=== PATIENT | female | born 1985 | race Caucasian/White ===

== ENCOUNTER 2025-08-03 15:00 | Emergency (ER) | payer SELFPAY ==
[~2025-08-03] VITALS: Ht 165.1 cm; Wt 80.0 kg
[2025-08-03 15:08] VITALS: TEMP 98; O2SAT 100
[2025-08-03 15:38] VITALS: BP 146/71; PULSE 88; RESP 14; O2SAT 98
[2025-08-03 16:07] LABS: BASOPHILS % 0.7 % (0.0-2.0); EOSINOPHILS % 0.8 % (0.0-5.0); HEMATOCRIT. 33.5 % (36.0-48.0); HEMOGLOBIN. 11.4 g/dL (12.0-16.0); LYMPHOCYTES % 24.7 % (20.0-50.0); MEAN PLATELET VOLUME 7.2 fl (7.4-10.4); MONOCYTES % 5.3 % (2.0-8.0); NEUTROPHILS % 68.5 % (40.0-76.0); PLATELET 342 x1000/uL (130-400); RED BLOOD CELL COUNT 3.67 mill/uL (4.2-5.4); RED CELL DISTRIBUTION WIDTH 13.7 % (11.6-14.6)
[2025-08-03 16:17] LABS: HCG SCREEN NEGATIVE; INR 1.0
[2025-08-03 16:20] LABS: CREATININE 1.0 mg/dL (0.6-1.0)
[2025-08-03 16:21] LABS: PROTEIN TOTAL 8.0 g/dL (6.0-8.3); UREA NITROGEN BLOOD 26 mg/dL (9-23)
[2025-08-03 16:22] LABS: ASPARTATE AMINOTRANSFERASE 30 IU/L (<34); TROPONIN I HIGH SENSITIVITY 6 ng/L (3.0-34)
[2025-08-03 16:23] LABS: BILIRUBIN DIRECT 0.1 mg/dL (<=3.0); BILIRUBIN TOTAL 0.5 mg/dL (0.1-1.0)
[2025-08-03 18:28] LABS: TROPONIN I HIGH SENSITIVITY 7 ng/L (3.0-34)
== END 2025-08-03 19:05 | disposition home or self-care (01) ==
LOC: ER 15:00
DX: R07.9 Chest pain, unspecified (principal); E11.9 Type 2 diabetes mellitus without complications; I10 Essential (primary) hypertension; R06.02 Shortness of breath
CPT/HCPCS: 36415; 71045; 80048; 80076; 83735; 83880; 84484; 84703; 85025; 85379; 93005; 99285